=== PATIENT | female | born 1960 | race Asian ===

== ENCOUNTER 2019-06-23 11:20 | Emergency (ER) | payer OTHER ==
[2019-06-23 12:07] LABS: ADD MAN DIFF? NO
[2019-06-23 12:10] LABS: WHITE BLOOD COUNT 7.9 10^3/ul (4.8-10.8)
[2019-06-23 12:10] LABS: BASOPHILS % 0.5 % (0.0-2.0); HEMATOCRIT 41.6 % (37.0-47.0); HEMOGLOBIN 14.3 g/dl (12.0-16.0); LYMPHOCYTES # 2.8 10^3/ul (0.8-2.9); LYMPHOCYTES % 35.6 % (15.0-51.0); MEAN CORPUSCULAR HEMOGLOBIN 28.7 pg (29.0-33.0); MEAN CORPUSCULAR HGB CONC 34.4 g/dl (32.0-37.0); MEAN CORPUSCULAR VOLUME 83.5 fl (82.0-101.0); MEAN PLATELET VOLUME 7.9 fl (7.4-10.4); MONOCYTE # 0.5 10^3/ul (0.3-0.9); MONOCYTES % 6.5 % (0.0-11.0); NEUTROPHIL # 4.5 10^3/ul (1.6-7.5); NEUTROPHILS % 56.9 % (39.0-77.0); PLATELET COUNT 319 10^3/UL (140-415); RED BLOOD COUNT 4.98 10^6/ul (4.20-5.40); RED CELL DISTRIBUTION WIDTH 14.1 % (11.5-14.5)
[2019-06-23] MEDS: FAMOTIDINE 20 MG INJ IV (12:10)
[2019-06-23] MEDS: LORAZEPAM 2 MG INJ IV ×2 (12:10→12:32)
[2019-06-23] MEDS: SOD CHLORIDE 0.9% 1,000 ML IV (12:10)
[2019-06-23] MEDS: ONDANSETRON 4 MG INJ IV (12:10)
[2019-06-23 12:28] LABS: ALANINE AMINOTRANSFERASE 12 IU/L (13-69); ALBUMIN 4.2 g/dl (3.3-4.9); ALKALINE PHOSPHATASE 78 IU/L (42-121); ANION GAP 12 (5-13); ASPARTATE AMINO TRANSFERASE 27 IU/L (15-46); BILIRUBIN,INDIRECT 0.8 mg/dl (0-1.1); BILIRUBIN,TOTAL 0.8 mg/dl (0.2-1.3); BLOOD UREA NITROGEN 5 mg/dl (7-20); CALCIUM 9.4 mg/dl (8.4-10.2); CARBON DIOXIDE 27 mmol/L (21-31); CHLORIDE 95 mmol/L (97-110); CREATININE 0.65 mg/dl (0.44-1.00); Estimated GFR > 60 mL/min (>60); GLUCOSE 113 mg/dl (70-220); LIPASE 111 U/L (23-300); SODIUM 134 mmol/L (135-144)
[2019-06-23 12:34] LABS: POTASSIUM 2.9 mmol/L (3.5-5.1)
[2019-06-23 12:39] LABS: TROPONIN-I < 0.012 ng/ml (0.000-0.120)
[2019-06-23] MEDS: POTASSIUM CHLORIDE 20 MEQ POWDER FOR ORAL SOLN PO ×2 (12:57→15:13)
[2019-06-23 13:12] LABS: ADD UMIC YES; UR ASCORBIC ACID NEGATIVE (NEGATIVE); UR BILIRUBIN (Dip) NEGATIVE (NEGATIVE); UR BLOOD (Dip) 1+ mg/dL (NEGATIVE); UR CLARITY CLEAR (CLEAR); UR COLOR STRAW (YELLOW); UR GLUCOSE (Dip) NEGATIVE (NEGATIVE); UR KETONES (Dip) 1+ mg/dL (NEGATIVE); UR LEUKOCYTE ESTERASE (Dip) NEGATIVE Leu/ul (NEGATIVE); UR NITRITE (Dip) NEGATIVE (NEGATIVE); UR RBC 0 /HPF (0-5); UR SPECIFIC GRAVITY (Dip) 1.001 (1.003-1.030); UR TOTAL PROTEIN (Dip) NEGATIVE (NEGATIVE); UR UROBILINOGEN (Dip) NEGATIVE (NEGATIVE); UR WBC 0 /HPF (0-5)
[2019-06-23] MEDS: morphine 4 MG/ML VIAL IV (13:15)
[2019-06-23] MEDS: SOD CHLORIDE 0.9% 100 ML (13:35)
[2019-06-23] MEDS: IOHEXOL 300MG/ML 150 ML BTL (13:35)
== END 2019-06-23 15:42 | disposition left against medical advice (07) ==
LOC: E/R 11:20
DX: E87.6 Hypokalemia (principal); R10.84 Generalized abdominal pain; F41.9 Anxiety disorder, unspecified; R40.2252 Coma scale, best verbal response, oriented, at arrival to emergency department; R40.2142 Coma scale, eyes open, spontaneous, at arrival to emergency department; R40.2362 Coma scale, best motor response, obeys commands, at arrival to emergency department
CPT/HCPCS: 36415; 71045; 74177; 80053; 81001; 83690; 84484; 85025; 93005; 96374; 96375; 99285-25